=== PATIENT | male | born 1940 | race Caucasian/White ===

== ENCOUNTER 2019-07-06 20:01 | Emergency (ER) | payer MEDICARE, OTHER ==
[~2019-07-06] VITALS: Ht 185.4 cm; Wt 102.1 kg
--- OUTSIDE RECORDS SUMMARY | 2019-07-06 20:05 | XMS REPORT ---
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 Allergies, Adverse Reactions, Alerts Allergy Name Allergy Type Status Severity Reaction(s) Onset Date Inactive Date Treating Clinician Comments No Known Allergies DA Active U 2018-06-10 00:00:00 Medications This patient has no known medications.
[2019-07-06] MEDS ORDERED: SODIUM CHLORIDE 0.9% 1000ML 1,000 ML IV STA (20:32)
[2019-07-06] MEDS ORDERED: ONDANSETRON HCL INJ 2MG/ML 2ML 2 MG/ML VIAL IV STA (20:32)
[2019-07-06 20:41] LABS: BASOPHILS % 0.2 % (0.0-1.0); EOSINOPHILS % 0.3 % (0.0-6.0); HEMOGLOBIN 12.8 g/dL (14.0-18.0); LYMPHOCYTES # (AUTO) 0.8 (1.0-3.2); LYMPHOCYTES % 6.8 % (18.0-39.1); MEAN CORPUSCULAR HEMOGLOBIN 32.1 pg (28-32); MEAN CORPUSCULAR HGB CONC 33.7 g/dL (31-35); MEAN CORPUSCULAR VOLUME 95.2 fL (81-99); MONOCYTES # (AUTO) 0.3 (0.2-0.8); MONOCYTES % 2.4 % (4.4-11.3); NEUTROPHILS # (AUTO) 11.1 (2.1-6.9); NEUTROPHILS % 89.9 % (38.7-80.0); PLATELET COUNT 211 x10e3/uL (140-360); RED BLOOD COUNT 3.99 x10e6/uL (4.3-5.7); RED CELL DISTRIBUTION WIDTH 14.6 % (11.7-14.4)
[2019-07-06 21:33] LABS: ALBUMIN 3.9 g/dL (3.5-5.0); CALCIUM 9.3 mg/dL (8.4-10.2); CREATININE, SERUM 2.64 mg/dL (0.72-1.25)
[2019-07-06 21:47] LABS: BILIRUBIN,URINE NEGATIVE (NEGATIVE); CLARITY,URINE SL CLOUDY (CLEAR); COLOR,URINE YELLOW (YELLOW); KETONES,URINE NEGATIVE (NEGATIVE); LEUKOCYTE ESTERASE ,URINE NEGATIVE (NEGATIVE); NITRITE,URINE NEGATIVE (NEGATIVE); PROTEIN,URINE DIPSTICK NEGATIVE (NEGATIVE); URINE UROBILINOGEN 0.2 mg/dL (0.2 - 1)
--- NOTE | 2019-07-06 22:01 | Diagnostic Imaging Report ---
EXAMINATION: CHEST SINGLE (PORTABLE) INDICATION: Chest pain. COMPARISON: None FINDINGS: TUBES and LINES: None. LUNGS: Low lung volumes. Central vascular congestion without pulmonary edema. Mild patchy bibasilar opacities, likely atelectasis. PLEURA: No pleural effusion or pneumothorax. HEART AND MEDIASTINUM: The cardiomediastinal silhouette is unremarkable. BONES AND SOFT TISSUES: No acute osseous abnormality. UPPER ABDOMEN: No free air under the diaphragm. IMPRESSION: No acute radiographic abnormality. Signed by: Dr. Juana Coleman MD on 07/06/2019 9:57 PM
[2019-07-06 22:06] LABS: BACTERIA,URINE FEW /HPF; RBC,URINE 0-5 /HPF (0-5); WBC,URINE (MAN) 0-5 /HPF (0-5)
[2019-07-06 22:07] LABS: EPITHELIAL CELLS,URINE RARE /LPF
[2019-07-07 00:54] VITALS: BP 125/60
[2019-07-07] MEDS ORDERED: FUROSEMIDE INJ 10 MG/ML 4 ML VIAL IV SCH (09:00)
== END 2019-07-07 01:14 | disposition home or self-care (01) ==
LOC: ER 20:01
DX: R11.2 Nausea with vomiting, unspecified (principal); K52.9 Noninfective gastroenteritis and colitis, unspecified
CPT/HCPCS: 36415; 71045; 80053; 81001; 83690; 83880; 85025; 99284; J2405; J7030

== ENCOUNTER 2020-02-03 07:06 | Inpatient (IN) | payer MEDICARE, OTHER ==
[~2020-02-03] VITALS: Ht 182.9 cm; Wt 102.1 kg
[2020-02-03] MEDS ORDERED: SODIUM CHLORIDE 0.9% 1000ML 1,000 ML IV STA (07:25)
[2020-02-03] MEDS ORDERED: PIPERACILLIN/TAZO 4.5 GM 100 ML IV STA (07:25)
--- NOTE | 2020-02-03 07:29 | Emergency Department Note ---
History of Present Illnes History of Present Illness Chief Complaint: COVID PUI History of Present Illness This is a 79 year old male 4 day h/o of weakness with acute lethargy. Patient brought by EMS, unable to provide meaningful history. Patient covered in body feces . 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 Any updates have been documented here. Past Medical History Past Medical History: Hypertension, Hypothyroidism, Chronic Kidney Disease Other Medical History: TESTOSTERONE BPH Past Surgical History: Appendectomy Other Surgery: LUMPECTOMY Other Last Tetanus: UNK Review of Systems ROS Narrative Unable to obtain ROS: altered mental status, critical patient Physical Exam Related Data Allergies: Coded Allergies: No Known Allergies (Unverified , 07/06/19) Physical Exam CONSTITUTIONAL HENT EYES NECK PULMONARY CARDIOVASCULAR GASTROINTESTINAL GENITOURINARY SKIN MUSCULOSKELETAL NEUROLOGICAL PSYCHOLOGICAL Results Laboratory Lab results reviewed: Yes Laboratory comments Laboratory Tests Test 02/03/20 15:20 02/03/20 10:39 Lactic Acid Level 0.7 mmol/L (0.5-2.0) Creatine Kinase 147 IU/L (30-200) Creatine Kinase MB 6.20 ng/mL (0-5.0) Troponin I 0.007 ng/mL (0-0.300) Imaging Imaging results reviewed: Yes Impressions [place] [address] Patient Name: VIRAL BAUTISTA MR #: [id number] : 1940 Age/Sex: 79/M Req #: [id number] Adm Physician: Ordered by: BLAKE WHITFIELD DO Report #: [id number] Location: ER Room/Bed: Procedure: [id number] CT/CT BRAIN WO Exam Date: 02/03/20 Exam Time: 0810 REPORT STATUS: Signed CT BRAIN WO HISTORY: Altered mental status COMPARISON: None. Technique: Noncontrast axial scans were obtained from skull base to the vertex. Coronal and sagittal reconstructions obtained from the axial data. One or more of the following dose reduction techniques were used: Automated exposure control, adjustment of the mA and/or kV according to patient size, and/or utilization of iterative reconstruction technique. Beam hardening artifacts obscure some details. DISCUSSION: Scalp/Skull: Unremarkable. Brain sulci: Mildly prominent. Ventricles: Compensatory dilatation. Extra-axial spaces: No masses or fluid collections. Carotid siphon and vertebral artery calcifications are present. Parenchyma: Mild to moderate bilateral deep white matter hypodensity is likely chronic microvascular ischemic change. Otherwise, no masses, hemorrhage, or large vascular territory acute infarct. Dural sinuses: No abnormal densities. Sellar/Suprasellar region: Intact. Skull base: Intact. Incidental findings: Mild scattered paranasal sinus mucosal thickening. Bilateral ocular lens replacement. IMPRESSION: 1. No acute intracranial abnormalities. 2. Mild to moderate supratentorial chronic microvascular ischemic change. Mild generalized cerebral volume loss. Signed by: Dr. Jose Espino M.D. on 02/03/2020 8:44 AM Dictated By: JOSE ESPINO MD 3 Transcribed By: DEANNA on 02/03/20843 COPY TO: BLAKE WHITFIELD DO~ [place] [address] Patient Name: VIRAL BAUTISTA MR #: [id number] : 1940 Age/Sex: 79/M Req #: [id number] Adm Physician: Ordered by: BLAKE WHITFIELD DO Report #: [id number] Location: ER Room/Bed: Procedure: [id number] DX/CHEST SINGLE (PORTABLE) Exam Date: 02/03/20 Exam Time: 0815 REPORT STATUS: Signed EXAM: CHEST SINGLE (PORTABLE) DATE: 02/03/2020 8:15 AM INDICATION: Altered mental status, diarrhea COMPARISON: 07/06/2019 FINDINGS: The trachea is midline. Lung volumes are low. The lungs are otherwise symmetrically expanded without evidence for large focal consolidation, pneumothorax, or significant pleural effusion. The cardiomediastinal silhouette and pulmonary vasculature are within normal limits. No acute osseous abnormalities identified. IMPRESSION: No acute cardiopulmonary process identified. Signed by: Dr. Mike Hernandez MD on 02/03/2020 9:03 AM Dictated By: MIKE HERNANDEZ MD 2 Transcribed By: DEANNA on 02/03/20902 COPY TO: BLAKE WHITFIELD DO~ Procedures 12 Lead ECG Interpretation ECG Interpretation : ECG: ECG 1 Corporate Officer: Interpreted by ED physician Date: Feb 03, 2020 Time: 07:32 Prior ECG tracings: reviewed Rhythm: sinus rhythm Ectopy: frequent PVC's Rate: normal BPM: 83 QRS axis: normal ST segments normal: Yes T waves normal: Yes Other findings: LVH Additional Comments trigeminy Critical Care Time Critcal care necessary due to: cardiac failure Critcal care time spent by me: evaluation patient response to tx, examination of patient, order/review laboratory studies, order/review radiographic studies, re-evaluation of patient condition Assessment & Plan Medical Decision Making MDM 79 yom presents to the ED for non-specific weakness with patient unable to provide meaningful history. Diff Dx includes but not limited to CVA, SAH, Intracranial pathology, ACS, Sepsis, Pneumonia, UTI, COVID-[address] scan , CXR, CBC, CMP, lab work ordered. Plan to admit to the hospital Assessment & Plan Final Impression: (1) Bigeminy (2) Renal insufficiency (3) Weakness Depart Disposition: ADMITTED Home Meds Reported Medications Levocetirizine Dihydrochloride (XYZAL) 5 Mg Tablet, 5 MG PO DAILY THERAPEUTICALLY SUBSTITUTED WITH LORATADINE 02/03/20 Levothyroxine Sodium (LEVOTHYROXINE SODIUM) 112 Mcg Tablet, 112 MCG PO QAM, #30 TAB 02/03/20 Saccharomyces Boulardii (Probiotic) 250 Mg Capsule, PO HS 02/03/20 Simethicone (SIMETHICONE) 80 Mg Chew, 125 MG PO HS, #30 TAB 02/03/20 [place]-3/Dha/Epa/Fish Oil (Fish Oil 1,200 mg Softgel) 1 Each Capsule.dr, 1200 MG PO HS 02/03/20 Docusate Sodium (DOCUSATE SODIUM) 100 Mg Tablet, 100 MG PO HS 02/03/20 Amlodipine Besylate (AMLODIPINE BESYLATE) 5 Mg Tablet, 5 MG PO HS, #30 TAB 02/03/20 Lactobac Cmb #3/Fos/Pantethine (PROBIOTIC & ACIDOPHILUS CAP) 1 Each Capsule, 1 CAP PO HS 02/03/20 Simethicone (SIMETHICONE) 80 Mg Chew, 125 MG PO QAM, TAB 02/03/20 Ferrous Sulfate (FERROUS SULFATE) 15 Mg/1 Ml Drops, 65 MG PO HS 02/03/20 Fish Oil/Dha/Epa (FISH OIL 1,200 MG FISH OIL) 1 Each Capsule, PO DAILY 02/03/20 Urine Leukocyte Test (AZO) 1 Each Strip, PO BID 02/03/20 Acetaminophen (ACETAMINOPHEN) 325 Mg/10 Ml Elix, 650 MG PO BID PRN for PRN, ML 02/03/20 Tamsulosin Hcl* (FLOMAX*) 0.4 Mg Cap, 0.4 MG PO HS, #30 CAP 02/03/20 Prednisone (PREDNISONE) 5 Mg Tablet, 5 MG PO DAILY PRN for PRN, #30 TAB 02/03/20 Potassium Chloride (POTASSIUM CHLORIDE) 20 Meq Tab.er.prt, 20 MG PO DAILY 02/03/20 Omeprazole (OMEPRAZOLE) 40 Mg Capsule.dr, 40 MG PO DAILY 02/03/20 Metoprolol Succinate (METOPROLOL SUCCINATE) 50 Mg Tab.er.24h, 50 MG PO DAILY, MG 02/03/20 Gabapentin (GABAPENTIN) 300 Mg Capsule, 1 CAP PO BID, #60 CAP 02/03/20 Furosemide (FUROSEMIDE) 40 Mg Tablet, 60 MG PO BID, #30 TAB 02/03/20 Finasteride (FINASTERIDE) 5 Mg Tablet, 5 MG PO HS, #30 TAB 02/03/20 Dicyclomine Hcl (DICYCLOMINE HCL) 10 Mg Capsule, 20 MG PO HS 02/03/20 Dicyclomine Hcl (DICYCLOMINE HCL) 20 Mg Tablet, 20 MG PO QAM, TAB 02/03/20 [Vitamin D] No Conflict Check, 0.25 MCG PO HS 02/03/20 Allopurinol (ALLOPURINOL) 100 Mg Tablet, 200 MG PO DAILY, #30 TAB 02/03/20 Medications in the ED Sodium Chloride 1,000 ml @ 0 mls/hr Q0M STAT IV Last administered on 02/03/20at 08:14; Admin Dose 1,000 MLS/HR; Start 02/03/20 at 07:25; Stop 02/03/20 at 07:28; Status DC Piperacillin Sod/ Tazobactam Sod 100 ml @ 100 mls/hr ONCE STAT IV Last administered on 02/03/20at 08:14; Admin Dose 100 MLS/HR; Start 02/03/20 at 07:25; Stop 02/03/20 at 08:24; Status DC BLAKE WHITFIELD DO Feb 03, 2020 07:29
[2020-02-03 07:49] LABS: BASOPHILS % 0.2 % (0.0-1.0); EOSINOPHILS % 0.3 % (0.0-6.0); HEMATOCRIT 38.4 % (38.2-49.6); HEMOGLOBIN 12.7 g/dL (14.0-18.0); LYMPHOCYTES # (AUTO) 1.2 (1.0-3.2); LYMPHOCYTES % 13.8 % (18.0-39.1); MEAN CORPUSCULAR HEMOGLOBIN 31.2 pg (28-32); MEAN CORPUSCULAR HGB CONC 33.1 g/dL (31-35); MEAN CORPUSCULAR VOLUME 94.3 fL (81-99); MONOCYTES # (AUTO) 0.7 (0.2-0.8); MONOCYTES % 7.3 % (4.4-11.3); NEUTROPHILS % 78.2 % (38.7-80.0); PLATELET COUNT 176 x10e3/uL (140-360); RED BLOOD COUNT 4.07 x10e6/uL (4.3-5.7); RED CELL DISTRIBUTION WIDTH 14.5 % (11.7-14.4)
[2020-02-03 08:12] LABS: ALBUMIN 4.1 g/dL (3.5-5.0); ALBUMIN/GLOBULIN RATIO 0.9 (0.8-2.0); ANION GAP 16.1 mmol/L (8-16); CREATININE, SERUM 2.61 mg/dL (0.72-1.25); POTASSIUM 4.1 mmol/L (3.5-5.1)
[2020-02-03 08:21] LABS: B-TYPE NATRIURETIC PEPTIDE2 68.6 pg/mL (0-100)
--- NOTE | 2020-02-03 08:47 | Diagnostic Imaging Report ---
CT BRAIN WO HISTORY: Altered mental status COMPARISON: None. Technique: Noncontrast axial scans were obtained from skull base to the vertex. Coronal and sagittal reconstructions obtained from the axial data. One or more of the following dose reduction techniques were used: Automated exposure control, adjustment of the mA and/or kV according to patient size, and/or utilization of iterative reconstruction technique. Beam hardening artifacts obscure some details. DISCUSSION: Scalp/Skull: Unremarkable. Brain sulci: Mildly prominent. Ventricles: Compensatory dilatation. Extra-axial spaces: No masses or fluid collections. Carotid siphon and vertebral artery calcifications are present. Parenchyma: Mild to moderate bilateral deep white matter hypodensity is likely chronic microvascular ischemic change. Otherwise, no masses, hemorrhage, or large vascular territory acute infarct. Dural sinuses: No abnormal densities. Sellar/Suprasellar region: Intact. Skull base: Intact. Incidental findings: Mild scattered paranasal sinus mucosal thickening. Bilateral ocular lens replacement. IMPRESSION: 1. No acute intracranial abnormalities. 2. Mild to moderate supratentorial chronic microvascular ischemic change. Mild generalized cerebral volume loss. Signed by: Dr. Jose Espino M.D. on 02/03/2020 8:44 AM
--- NOTE | 2020-02-03 09:06 | Diagnostic Imaging Report ---
EXAM: CHEST SINGLE (PORTABLE) DATE: 02/03/2020 8:15 AM INDICATION: Altered mental status, diarrhea COMPARISON: 07/06/2019 FINDINGS: The trachea is midline. Lung volumes are low. The lungs are otherwise symmetrically expanded without evidence for large focal consolidation, pneumothorax, or significant pleural effusion. The cardiomediastinal silhouette and pulmonary vasculature are within normal limits. No acute osseous abnormalities identified. IMPRESSION: No acute cardiopulmonary process identified. Signed by: Dr. Mike Hernandez MD on 02/03/2020 9:03 AM
[2020-02-03 11:11] LABS: BILIRUBIN,URINE NEGATIVE (NEGATIVE); CLARITY,URINE CLEAR (CLEAR); COLOR,URINE YELLOW (YELLOW); KETONES,URINE NEGATIVE (NEGATIVE); LEUKOCYTE ESTERASE ,URINE NEGATIVE (NEGATIVE); NITRITE,URINE NEGATIVE (NEGATIVE); PROTEIN,URINE DIPSTICK 2+ (NEGATIVE); URINE UROBILINOGEN 0.2 mg/dL (0.2 - 1)
[2020-02-03] MEDS ORDERED: ASPIRIN 81 MG CHEW TAB PO ONE (11:15)
[2020-02-03 11:30] LABS: WBC,URINE (MAN) 0-5 /HPF (0-5)
[2020-02-03 11:31] LABS: AMORPHOUS SEDIMENT,URINE FEW (FEW); BACTERIA,URINE RARE /HPF; EPITHELIAL CELLS,URINE RARE /LPF; RBC,URINE 0-5 /HPF (0-5)
[2020-02-03 12:47] VITALS: BP 150/69
[2020-02-03 12:48] VITALS: BP 150/69
--- NOTE | 2020-02-03 12:51 | NUR ---
PATIENT ARRIVED ON THE UNIT AT 1234 PER STRETCHER FROM THE ER. BEDSIDE REPORT GIVEN BY ER NURSE. PATIENT IS NON-VERBAL AND IS IN STABLE CONDITION WITH NO S/S OF RESPIRATORY DISTRESS. NO PAIN INDICATED. 02 APPLIED AT 2L NC. POOLE INTACT AND DRAINING; URINE IS YELLOW AND CLEAR. DIAPER APPLIED. TELEMETRY APPLIED- SB@55. BILATERAL BRUISING NOTED TO UPPER EXTREMITIES. AIR PUMP APPLIED TO MATTRESS; BED ALARM APPLIED. CALL LIGHT IS WITHIN REACH, PATIENT INSTRUCTED TO CALL FOR ASSISTANCE NEEDED.
[2020-02-03 12:55] VITALS: BP 150/69
--- NOTE | 2020-02-03 13:03 | NUR ---
RN CALLED TO SPEAK WITH THE PATIENT'S SON- SON WAS NOT ABLE TO PROVIDE INFORMATION ON THE PATIENT AND ASKED RN TO USE THE INFORMATION FROM HIS LAST HOSPITAL VISIT. RN CALLED TO SPEAK WITH THE PATIENT'S - SHE WAS ABLE TO PROVIDE LIMITED INFO AND WILL TRY TO PROVIDE THE PATIENT'S HOME MEDICATIONS.
[2020-02-03] MEDS ORDERED: METOPROLOL SUCC50 MG PO (14:44)
[2020-02-03] MEDS ORDERED: VITAMIN D PO (14:44)
[2020-02-03] MEDS ORDERED: FUROSEMIDE40 MG PO (14:44)
[2020-02-03] MEDS ORDERED: AZO1 EACH PO (14:44)
[2020-02-03] MEDS ORDERED: POTASSIUM CHLO20 ME1 PO (14:44)
[2020-02-03] MEDS ORDERED: ALLOPURINOL100 MG PO (14:44)
[2020-02-03] MEDS ORDERED: GABAPENTIN300 MG PO (14:44)
[2020-02-03] MEDS ORDERED: DICYCLOMINE HCL20 MG PO (14:44)
[2020-02-03] MEDS ORDERED: DICYCLOMINE HCL10 MG PO (14:44)
[2020-02-03] MEDS ORDERED: OMEPRAZOLE40 MG PO (14:44)
[2020-02-03] MEDS ORDERED: FERROUS SU15 MG/1 ML PO (14:44)
[2020-02-03] MEDS ORDERED: PREDNISONE5 MG PO (14:44)
[2020-02-03] MEDS ORDERED: FINASTERIDE5 MG PO (14:44)
[2020-02-03] MEDS ORDERED: FISH OIL 1,2001 EACH PO (14:44)
[2020-02-03] MEDS ORDERED: ACETAMINOP325 MG/10 PO (14:44)
[2020-02-03] MEDS ORDERED: FLOMAX0.4 MG PO (14:44)
[2020-02-03] MEDS ORDERED: PROBIOTIC & AC1 EACH PO (14:46)
[2020-02-03] MEDS ORDERED: SIMETHICONE80 MG PO ×2 (14:46→19:17)
[2020-02-03 15:19] VITALS: BP 135/89
[2020-02-03 15:59] LABS: CREATINE KINASE MB 6.2 ng/mL (0-5.0)
--- NOTE | 2020-02-03 16:57 | NUR ---
CONSULT CALLED TO DR. HUBER- SPOKE WITH RAFA FROM ANSWERING SERVICE.
[2020-02-03] MEDS ORDERED: ACETAMINOPHEN 325 MG/10 ML UDC PO PRN (17:45)
[2020-02-03] MEDS ORDERED: PREDNISONE 5 MG TAB PO PRN (17:45)
--- NOTE | 2020-02-03 19:10 | NUR ---
Acknowledged assignment of patient. However, at this time patient has been noted to be COVID19+ve and there is a transfer order for the patient to go to the COVID unit. Day nurse Arabella accepted and called report to Pooja MCMILLAN at COVID unit.Signing off care at this time.
[2020-02-03] MEDS ORDERED: XYZAL5 MG PO (19:17)
[2020-02-03] MEDS ORDERED: FISH OIL 1,2001 EAC6 PO (19:17)
[2020-02-03] MEDS ORDERED: LEVOTHYROXINE112 MCG PO (19:17)
[2020-02-03] MEDS ORDERED: PROBIOTIC250 MG PO (19:17)
[2020-02-03] MEDS ORDERED: AMLODIPINE BESYL5 MG PO (19:17)
[2020-02-03] MEDS ORDERED: DOCUSATE SODIU100 M1 PO (19:17)
--- NOTE | 2020-02-03 19:30 | NUR ---
TRANSFER REPORT CALLED TO RN; DR. JONES CONSULT CALLED. - PATIENT IS TRANSFERRING TO ROOM 186 PER POLYETHYLENE COMBINER STAFF.
--- NOTE | 2020-02-03 19:54 | NUR ---
Patient arrived to unit via bed. Patient awake and sitting up in bed, vital signs stable, currently on RA, no s/s of distress at this time. Orourke catheter patent and draining to gravity. Bed locked and in lowest position, side rails upx3, call light placed within reach. Patient instructed to call for assistance if needed, all safety measures in place. Will continue to monitor.
[2020-02-03 20:00] VITALS: BP 140/80
[2020-02-03] MEDS ORDERED: CEFTRIAXONE SOD 1 GM/NS 50 ML 50 ML IV SCH (20:00)
[2020-02-03] MEDS ORDERED: SODIUM CHLORIDE 0.9% 250ML 250 ML ONE (20:12)
[2020-02-03] MEDS: FERROUS SULFATE 65 MG PO SCH (20:53)
[2020-02-03] MEDS: AZITHROMYCIN 500MG/NS 250 ML 250 ML IV SCH (20:53)
[2020-02-03] MEDS: DOCUSATE SODIUM 100 MG CAP PO SCH (20:53)
[2020-02-03] MEDS: DICYCLOMINE HCL 10 MG CAP PO SCH (20:53)
[2020-02-03] MEDS: AMLODIPINE BESYLATE 5 MG TAB PO SCH (20:54)
[2020-02-03] MEDS: FINASTERIDE 5 MG TAB PO SCH (20:54)
--- NOTE | 2020-02-03 20:56 | NUR ---
Spoke to Dr. Hurtado regarding new routine consult. Per MD he is on his way to see patient.
[2020-02-03] MEDS ORDERED: LACTOBACILLUS ACIDOPHILUS CAPSULE PO SCH (21:00)
[2020-02-03] MEDS ORDERED: DICYCLOMINE HCL 10 MG CAP PO SCH (21:00)
--- NOTE | 2020-02-03 21:09 | NUR ---
Dr. Hurtado here to see patient. No new orders received at this time.
[2020-02-03] MEDS: LACTOBACILLUS ACIDOPHILUS CAPSULE PO SCH (21:15)
[2020-02-03 21:17] VITALS: BP 140/80
[2020-02-04] VITALS (8 sets, daily range): BP systolic 128–171; BP diastolic 58–93
--- NOTE | 2020-02-04 02:11 | Consultation ---
DATE OF CONSULTATION: Pulmonary Critical Care Consultation CHIEF COMPLAINT: Malaise and fatigue. HISTORY OF PRESENT ILLNESS: The patient is a 79-year-old man with a history of Clostridium difficile colitis. He just completed several months of vancomycin 2 weeks ago. He also has a history of renal insufficiency and benign prostatic hypertrophy. He has noted increasing fatigue and malaise over the past several days. He has also had a cough for about a week. He denies fevers. He is not having chest pain. He is not having dyspnea. He presented to the emergency department and had the chest x-ray had showed no acute disease. His COVID test is pending. PAST SURGICAL HISTORY: Status post appendectomy. PAST MEDICAL HISTORY: 1. Chronic renal failure, stage 3-4. 2. Hypertension. 3. Benign prostatic hypertrophy. 4. Hypothyroidism. ALLERGIES: NO KNOWN DRUG ALLERGIES. SOCIAL HISTORY: The patient is not a smoker or drinker. FAMILY HISTORY: Noncontributory. REVIEW OF SYSTEMS: The patient denies any fever. He is not having headache. He does note some increased malaise. He has no chest pain. He is not having any dyspnea. He has some mild cough. He has no abdominal pain. He is not having diarrhea at this time. PHYSICAL EXAMINATION: VITAL SIGNS: Blood pressure is 135/89, saturation is 99% on 2 L, pulse is 61, and respiratory rate is 16. HEENT: Shows no facial swelling or erythema. CARDIAC: Reveals regular rate and rhythm with normal S1 and S2. LUNGS: Auscultation of lungs reveals rhonchorous breath sounds bilaterally. There is no wheezing. ABDOMEN: Soft and nontender. There is no rebound or guarding. EXTREMITIES: There is no leg edema. NEUROLOGIC: The patient is has no focal neurological abnormalities. LABORATORY DATA: BUN to creatinine ratio is 35 and 2.61. His carbon dioxide is 20. Albumin is 4.1. White blood cell count is 9, hemoglobin is 12.7, and platelet count is 176. RADIOGRAPHIC DATA: Chest x-ray shows no active disease. CT scan of the brain shows no acute abnormalities. IMPRESSION: 1. Chronic renal failure stage 4. 2. Recurrent Clostridium difficile colitis. 3. Metabolic acidosis related to renal failure. 4. Hypertension. 5. Evaluation for coronavirus disease 2019. PLAN: 1. Avoid excessive antibiotics, which could lead to recurrent Clostridium difficile colitis. 2. Await COVID-19 results. 3. Judicious use of IV fluids. 4. Echocardiogram. MD DEJUAN Wang/NATHANIEL /[id number]
[2020-02-04 06:00] LABS: EOSINOPHILS # (AUTO) 0.1 (0.0-0.4); EOSINOPHILS % 1.5 % (0.0-6.0); HEMATOCRIT 36.6 % (38.2-49.6); HEMOGLOBIN 11.9 g/dL (14.0-18.0); LYMPHOCYTES # (AUTO) 1.2 (1.0-3.2); LYMPHOCYTES % 20.7 % (18.0-39.1); MEAN CORPUSCULAR HEMOGLOBIN 30.4 pg (28-32); MEAN CORPUSCULAR HGB CONC 32.5 g/dL (31-35); MEAN CORPUSCULAR VOLUME 93.6 fL (81-99); MONOCYTES # (AUTO) 0.6 (0.2-0.8); MONOCYTES % 10.9 % (4.4-11.3); NEUTROPHILS # (AUTO) 3.9 (2.1-6.9); NEUTROPHILS % 66.7 % (38.7-80.0); PLATELET COUNT 157 x10e3/uL (140-360); RED BLOOD COUNT 3.91 x10e6/uL (4.3-5.7); RED CELL DISTRIBUTION WIDTH 14.2 % (11.7-14.4)
[2020-02-04 06:08] LABS: CREATINE KINASE MB 4.3 ng/mL (0-5.0)
[2020-02-04] MEDS: LEVOTHYROXINE SODIUM 112 MCG TAB PO SCH (06:30)
[2020-02-04 06:39] LABS: ALBUMIN 3.3 g/dL (3.5-5.0); ALBUMIN/GLOBULIN RATIO 0.9 (0.8-2.0); ANION GAP 14.7 mmol/L (8-16); CALCIUM 8.8 mg/dL (8.4-10.2); CREATININE, SERUM 1.83 mg/dL (0.72-1.25); POTASSIUM 3.7 mmol/L (3.5-5.1)
[2020-02-04] MEDS ORDERED: METOPROLOL SUCCINATE 50 MG TAB XL PO SCH (09:00)
[2020-02-04] MEDS ORDERED: PANTOPRAZOLE SOD 40 MG TABEC PO SCH (09:00)
--- NOTE | 2020-02-04 09:08 | Progress Note ---
DATE: SUBJECTIVE: The patient is not having any diarrhea. He actually complains of constipation. He denies dyspnea or cough. OBJECTIVE: VITAL SIGNS: The blood pressure is 128/75, saturation is 95%. The pulse is 81. HEENT: Shows no facial swelling or erythema. CARDIAC: Reveals a regular rate and rhythm with normal S1 and S2. LUNGS: Auscultation of lungs reveals rhonchus breath sounds bilaterally. There is no wheezing. ABDOMEN: Soft, nontender. There is no rebound or guarding. EXTREMITIES: Shows no leg edema or calf tenderness. There is no cyanosis or clubbing. SKIN: Shows no rashes. NEUROLOGICAL: Shows no focal abnormalities. LABORATORY DATA: BUN to creatinine ratio is 27 to 1.83 and carbon dioxide is 21. The albumin is 3.3. The white blood cell count is 5.85 and hemoglobin is 11.9. The platelet count is 157. RADIOGRAPHIC DATA: Chest x-ray shows no active disease. ASSESSMENT: 1. Coronavirus disease - 19 and viral pneumonia with minimal symptoms. 2. Recurrent Clostridium difficile colitis. 3. Chronic renal failure stage 3. 4. Hypertension. PLAN: 1. Discussed with Dr. Coyne and Dr. More. Dr. Coyne will evaluate the patient later today with possible discharge. 2. Avoid excessive antibiotics because of prior history of C. difficile. 3. Continue current antihypertensive regimen. Liam Hurtado MD [facility]/ALEXL /[id number]
[2020-02-04] MEDS: DICYCLOMINE HCL 20 MG TAB PO SCH (09:30)
[2020-02-04] MEDS: SIMETHICONE 80 MG CHEW PO SCH (09:30)
[2020-02-04] MEDS: ALLOPURINOL 100 MG TAB PO SCH (09:30)
[2020-02-04] MEDS: METOPROLOL SUCCINATE 50 MG TAB XL PO SCH (09:30)
[2020-02-04] MEDS: LACTOBACILLUS ACIDOPHILUS CAPSULE PO SCH ×2 (09:30→18:00)
[2020-02-04] MEDS: POTASSIUM CHLORIDE 20 MEQ TAB CR PO SCH (09:30)
[2020-02-04] MEDS: SODIUM CHLORIDE 0.9% 1000ML 1,000 ML IV SCH ×2 (09:30→19:47)
--- NOTE | 2020-02-04 12:12 | NUR ---
WOUND CARE CONSULT FOR 79 YO MALE HX OF weakness , trigemity MARY 16 ON CONSERVATIVE PUP STATUS AND INTERVENTIONS AND VISCO MATTRESS LABS: WBC-5.85 HGB_11.9 GLUCOSE-91 SKIN ASSESSMENT COMPLETE PATIENT PRESENTS WITH SACRAL STAGE 2 ULCERATION 2CM X0.5CM X0.1CM RECOMMENDATIONS: NURSING TO CONTINUE TO MAINTAIN CONSERVATIVE PUP STATUS AND INTERVENTIONS AND VISCO MATTRESS NURSING TO CONTINUE TO ASSIST PATIENT OUT OF BED FOR MEALS AND MUCH TOLERATED NURSING TO CONTINUE TO ASSIST PATIENT NEEDED WITH MEALS AND NUTRITIONAL SUPPLEMENTS TO ENSURE PROPER REQUIREMENTS FOR HEALING NURSING TO CONTINUE TO OFFLOAD FEET AND HEELS NEEDED WITH PILLOW SUSPENSION WHEN IN BED NURSING TO CLEAN SACRAL STAGE 2 ULCER WITH NORMAL SALINE DAILY AND APPLY VENELEX OINTMENT AND ALLEVYN FOAM DRESSING Addendum: 02/04/20 at 1215 by Samy Mendoza RN Amended: Links added.
--- NOTE | 2020-02-04 13:31 | NUR ---
infectious disease consultation reason for consultation covid 19 History of C. difficile colitis Chief complaint Malaise and fatigue. HISTORY OF PRESENT ILLNESS: The patient Who is very well known to me here history of recurrent C. difficile colitis he also history of dementia the patient has been sick for a week according to him not feeling well feverish he came here because he was diagnosed with cope with 19 the patient is currently ly ing in bed comfortably but he is quite well there is no shortness of breath no oxygen demand. When I was examining him he had a little bit of fever 100.6 but she denies any complaints. He had no diarrhea no nausea no vomiting no pain. She is weak. is a 79-year-old man with a history of Clostridium difficile colitis. He just completed several months of vancomycin 2 weeks ago. He also has a history of renal insufficiency and benign prostatic hypertrophy. the patient has had multiple admissions to the hospital I know him from an outside clinic practice He has noted increasing fatigue and malaise over the past several days. He has also had a cough for about a week. He denies fevers. He is not having chest pain. He is not having dyspnea. He presented to the emergency department and had the chest x-ray had showed no acute disease. His COVID test is pending. PAST SURGICAL HISTORY: Status post appendectomy. PAST MEDICAL HISTORY: 1. Chronic renal failure, stage 3-4. 2. Hypertension. 3. Benign prostatic hypertrophy. 4. Hypothyroidism. ALLERGIES: NO KNOWN DRUG ALLERGIES. SOCIAL HISTORY: The patient is not a smoker or drinker. FAMILY HISTORY: Noncontributory. REVIEW OF SYSTEMS: The patient denies any fever. He is not having headache. He does note some increased malaise. He has no chest pain. He is not having any dyspnea. He has some mild cough. He has no abdominal pain. He is not having diarrhea at this time. he had no fever but he did not feel it 14 points are negative PHYSICAL EXAMINATION: VITAL SIGNS: Blood pressure is 135/89, saturation is 99% on 2 L, pulse is 61, and respiratory rate is 16. HEENT: Shows no facial swelling or erythema. CARDIAC: Reveals regular rate and rhythm with normal S1 and S2. LUNGS: Auscultation of lungs reveals rhonchorous breath sounds bilaterally. There is no wheezing. ABDOMEN: Soft and nontender. There is no rebound or guarding. EXTREMITIES: There is no leg edema. NEUROLOGIC: The patient is has no focal neurological abnormalities. LABORATORY DATA: BUN to creatinine ratio is 35 and 2.61. His carbon dioxide is 20. Albumin is 4.1. White blood cell count is 9, hemoglobin is 12.7, and platelet count is 176. RADIOGRAPHIC DATA: Chest x-ray shows no active disease. CT scan of the brain shows no acute abnormalities. IMPRESSION: covid 19 on admission patient with little symptoms there is no need for treatment 1. Chronic renal failure stage 4. 2. Recurrent Clostridium difficile colitis.he has no diarrhea there is no need for treatment 3. Metabolic acidosis related to renal failure. 4. Hypertension. 5. Evaluation for coronavirus disease 2019. PLAN: supportive CARE there is no need for treatment only for antibiotic no need for dexamethasone and just supportive care vitamin C and zinc patient could be discharged home I am going to observe him for a couple more hours if he is doing well he can be discharged home with no treatment To continue droplet isolation home quarantine for 2 weeks
--- NOTE | 2020-02-04 13:37 | NUR ---
SPOKE WITH SON VIRAL WHOM STATED HE HAS BEEN TRYING TO GET AHOLD OF DOCTOR TO DISCUSS HISTORY. BEGAN YELLING AT ME. I LET HIM KNOW THAT I WAS CALLING ABOUT THE SNF ORDER THE DOCTOR ORDERED, HE STATES HE WILL NOT AGREE TO ANYTHING UNTIL HE SPEAKS WITH THE DOCTOR. NOTIFIED TELEMETRY RN WHOM WILL CALL HIM.
--- NOTE | 2020-02-04 15:44 | NUR ---
Nutrition Intervention Note RD Recommendation(s) for Physician: -Continue current diet as ordered -Recommend Gordo BID as well as zinc and vitamin C to promote wound healing Plan of Care: RD following, monitoring for tolerance and adequacy, oral supplement recommendation Nutrition reason for involvement: pressure ulcer RD Assessment (02/04/20) Pt is a 79 year old male admitted with trigeminy and weakness. Pt is COVID+. Unable to enter room due to droplet isolation precautions. Attempted to call pt over the phone, but he did not answer. Per documentation, pt consumed 100% of his breakfast this morning. There are no previous weights in chart. It is noted that pt has a stage 2 sacral pressure ulcer. Recommend Gordo BID as well as zinc and vitamin C to promote wound healing. 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 GI: soft, non-tender abdomen, liquid stools Skin: stage 2 sacral pressure ulcer Labs: (02/04/20) Na 141, K 3.7, BUN 27, Cr 1.83, Glu 91, Ca 8.8 Meds: probiotic, NaCl, KCl, levothyroxine, colace, antibiotic, lovenox, prednisone Ht: 72 inches Wt: 225 lbs BMI: 30.5 kg/m2 IBW: 178 lbs Malnutrition Evaluation (02/04/20) Unable to fully assess. Will re-evaluate at follow-up as appropriate. Nutrition Prescription (Diet Order): cardiac Estimated Nutritional Needs: 0788-3002 calories/day (22-25 kcal/kg IBW) 121-162 g protein/day (1.5-2 g pro/kg IBW) Diet Adequacy: it is recorded pt consumed 100% of breakfast this morning, previous PO intake is unknown Tolerance: Tolerating PO Diet Education Needs Assessment: RD is available for diet education as needed Nutrition Care Level: low Nutrition Diagnosis: Increased nutrient needs related to increased demand for protein and kcal as evidenced by stage 2 sacral pressure ulcer. Goal: Patient will meet 75-100% of estimated needs by follow up Progress: N/A Interventions: -fat/cholesterol/sodium - modified diet, Commercial beverage Monitoring/Evaluation: -Total energy intake, Total protein intake Modified diet, Liquid supplement, Weight change Signed: Korin Landeros RD, LD
[2020-02-04] MEDS: ENOXAPARIN SOD INJ 40 MG/0.4 ML SYR SC SCH (17:00)
--- NOTE | 2020-02-04 19:37 | NUR ---
BSSR RECEIVED FROM DAYSHIFT, PATIENT SEEN ATTEMPTING TO GET OOB UNASSISTED, POOLE BEING PULLED FROM OTHER SIDE OF BED, BED ALARM ACTIVATED, PT EDUCATED ON FALL RISK, STATES " I FORGOT", PATIENT TAKEN SAFETYLY TO BATHROOM WITH STANBY ASSISTANCE/WALKER, 1100CC OF DARK YELLOW URINE EMPTIED, PATIENT STATES " I HAD BOWEL MOVEMENT" FLUSHED TOILET BEFORE CAN BE ASSESSED, PLACED BACK IN BED SAFETY MAINTAINED, CALL LIGHT WITHIN REACH BED ALARM REACTIVATED
--- NOTE | 2020-02-04 21:50 | History and Physical ---
PRIMARY CARE PHYSICIAN: INFECTIOUS DISEASE: Altagracia Coyne MD CHIEF COMPLAINT: Generalized weakness. HISTORY OF PRESENT ILLNESS: This is a 79-year-old male with past medical history of hypertension, CKD, hypothyroidism, and BPH presented to the ER with complaints of weakness. According to EMS, the patient was very weak, founding faces. He is not able to give me much information. He denies any chest pain, fever, chills, nausea, or vomiting. No abdominal pain. In the ER, his creatinine was 2.61. Coronavirus PCR was dissected. CT brain with no acute intracranial abnormality. Chest x-ray was unremarkable. He is admitted for further evaluation and placement. PAST MEDICAL HISTORY: 1. Hypertension. 2. Hypothyroidism. 3. CKD. 4. Benign prostatic hyperplasia. SURGICAL HISTORY: Unknown. FAMILY MEDICAL HISTORY: Unknown SOCIAL HISTORY: He denies tobacco, alcohol, or illicit drug use. ALLERGIES: NO KNOWN DRUG ALLERGIES. REVIEW OF SYSTEMS: Unable to obtain due to altered mental status. PHYSICAL EXAMINATION: VITAL SIGNS: Temperature 98.1, pulse is 81, respirations 18, blood pressure 128/75, pulse ox is 95% on room air. GENERAL: No acute distress. HEENT: Normocephalic, atraumatic. NECK: Supple. LUNGS: Decreased breath sounds. CARDIOVASCULAR: Regular rate and rhythm. GI: Soft and nontender. NEUROLOGIC: Alert, awake, and oriented x1 to x2. MUSCULOSKELETAL: Moves all extremities. No edema. SKIN: Dry. LABORATORY DATA: WBC 5.85, hemoglobin 11.9, hematocrit 36.6, platelets 157. Sodium 141, potassium 3.7, CO2 of 21. BUN is 27. Creatinine is 1.83 . Lactic acid is 0.7. Troponin x3 is -0.008. BNP is 68.6. Urine negative. Coronavirus PCR is positive. Chest x-ray is unremarkable. Brain CT is unremarkable for acute process. IMPRESSION AND PLAN: 1. General weakness, likely due to coronavirus disease 2019 pneumonia. He was started on azithromycin and Rocephin. ID and Pulmonary have been consulted. Chest x-ray negative. 2. Acute kidney injury on chronic kidney disease, improving with IV fluid hydration. Creatinine is now 1.83. We will continue to hydrate and repeat labs in a.m. 3. Trigeminy, on EKG. Cardiology has been consulted. Echo is pending. 4. Hypertension. Continue metoprolol. 5. Hypothyroidism. Continue on Synthroid 112 mcg daily. 6. Benign prostatic hyperplasia. Continue on Proscar. 7. High cholesterol. Continue on statin. 8. Recent history of Clostridium difficile. Completed vancomycin per ID. Continue probiotics. Further recommendation per ID. 9. Deep venous thrombosis prophylaxis. Lovenox. PLAN: To continue current treatments, further recommendations per Cardiology. Placement to nursing home facility once cleared by Cardiology. Dictated by RENALDO Kaiser Aliciaching Wilbert More MD MY/MODL /[id number]
--- NOTE | 2020-02-04 22:13 | NUR ---
PER MD DAWN ORDER, PATIENT GIVEN METOPROLOL IV CONVERTED BACK TO SINUS RHYTHM, AMIODARONE DRIP ORDER PENDING, PT PENDING DISCHARGE TO ICU PER MD NIA WHITT
[2020-02-04] MEDS: AMLODIPINE BESYLATE 5 MG TAB PO SCH (22:16)
[2020-02-04] MEDS: FERROUS SULFATE 65 MG PO SCH (22:16)
[2020-02-04] MEDS: FINASTERIDE 5 MG TAB PO SCH (22:16)
[2020-02-04] MEDS: DOCUSATE SODIUM 100 MG CAP PO SCH (22:16)
[2020-02-04] MEDS: DICYCLOMINE HCL 10 MG CAP PO SCH (22:16)
[2020-02-04] MEDS: AZITHROMYCIN 500MG/NS 250 ML 250 ML IV SCH (22:16)
[2020-02-05] VITALS (9 sets, daily range): BP systolic 147–167; BP diastolic 56–76
[2020-02-05] MEDS: SODIUM CHLORIDE 0.9% 1000ML 1,000 ML IV SCH ×3 (02:45→21:30)
[2020-02-05] MEDS: LEVOTHYROXINE SODIUM 112 MCG TAB PO SCH (05:30)
[2020-02-05 05:32] LABS: ANION GAP 12.6 mmol/L (8-16); CALCIUM 8.7 mg/dL (8.4-10.2); CREATININE, SERUM 1.78 mg/dL (0.72-1.25); POTASSIUM 3.6 mmol/L (3.5-5.1)
--- NOTE | 2020-02-05 07:28 | NUR ---
MARGARET MCMILLAN UPDATED ON PATIENT CARE
[2020-02-05] MEDS: DICYCLOMINE HCL 20 MG TAB PO SCH (09:09)
[2020-02-05] MEDS: ALLOPURINOL 100 MG TAB PO SCH (09:10)
[2020-02-05] MEDS: POTASSIUM CHLORIDE 20 MEQ TAB CR PO SCH (09:10)
[2020-02-05] MEDS: SIMETHICONE 80 MG CHEW PO SCH (09:10)
[2020-02-05] MEDS: LACTOBACILLUS ACIDOPHILUS CAPSULE PO SCH ×2 (09:10→17:37)
[2020-02-05] MEDS: METOPROLOL SUCCINATE 50 MG TAB XL PO SCH (09:10)
[2020-02-05] MEDS: BALSAM PERU/CASTOR OIL 60 GM OINT...G. TP SCH (09:11)
--- NOTE | 2020-02-05 12:15 | NUR ---
SPOKE WITH PT VIA PHONE, HE IS ALERT AND ORIENTED AND IN AGREEMENT TO GO TO SNF, [facility]
--- NOTE | 2020-02-05 12:59 | Progress Note ---
DATE: SUBJECTIVE: The patient is seen and evaluated. Available labs and notes reviewed. This case was discussed with Dr. Coyne in details. Please refer to chart for more information. REVIEW OF SYSTEMS: He is doing "great." No nausea, vomiting, fever, chills, chest pain, or shortness of breath. Appetite is fair. No diarrhea. No loss of taste or smell. MEDICATIONS: 1. Zithromax. 2. Lovenox. LABORATORY STUDIES: White count of 5.85, hemoglobin 11.9, and platelet 157. Sodium 141, potassium 3.6, and creatinine 1.78. Serology: Coronavirus PCR detected on 02/03/2020. MICROBIOLOGY: Blood culture, negative 48 hours. RADIOLOGY STUDIES: No new radiology studies available. PHYSICAL EXAMINATION: VITAL SIGNS: Temperature 98.7, pulse 64, respirations 18, and blood pressure 159/64. The patient's on room air saturation between 95-97%. No obvious acute finding. GENERAL: Alert and oriented, no acute distress. CV: S1-S2. CHEST: Equal expansion. Clear to auscultation with decreased breath sounds. No acute distress. ABDOMEN: Soft. Nontender. No distention. HEENT: Moist. No pallor. No JVD. EXTREMITIES: Moves all. ASSESSMENT AND PLAN: 1. Positive coronavirus disease-19, clinically doing really well. He stays on room air, saturation is in high 90s clinically. No acute distress. 2. Recurrent Clostridium difficile. The patient denied any diarrhea. 3. Renal insufficiency, stage 4. 4. Metabolic acidosis. 5. Hypertension. Discussed with Case Management. Discharge planning is in progress. Please refer to chart for more information. Dictated by Bienvenido Enriquez PA-C (Al) Altagracia Coyne MD /MODL /[id number]
--- NOTE | 2020-02-05 13:47 | NUR ---
Urinary Catheter removed per ordered. Catheter intact. Due to void 19:37. Respiration even and unlabored without SOB. Call light in reach.
--- NOTE | 2020-02-05 15:04 | Progress Note ---
DATE: 02/05/2020 CONSULTANTS: 1. Altagracia Coyne M.D., Infectious Disease. 2. Liam Hurtado M.D., Radio Repairer. CHIEF COMPLAINT: Generalized weakness and chronic diarrhea. SUBJECTIVE: The patient is much more awake and alert today, he is able to get up and ambulate with walker. We will discontinue [place]ke catheter. He denies any chest pain, shortness of breath, fever, or chills. He is agreeable to go to a halfway facility for long rehabilitation before sending home. OBJECTIVE: VITAL SIGNS: Temperature 98.7, pulse is 64, respirations 18, blood pressure 159/64, and pulse ox is 95% on room air. GENERAL: In no acute distress. HEENT: Normocephalic, atraumatic. NECK: Supple . LABORATORY DATA: Sodium 141, potassium 3.6, BUN is 24, creatinine 1.76, and estimated GFR 37. Troponin negative. Blood culture negative so far. IMPRESSION: 1. Generalized weakness, likely due to dehydration due to COVID-19. He was started on azithromycin. ID and Pulmonary have been consulted. Chest x-ray unremarkable. He is on room air. 2. Acute kidney injury on chronic kidney disease, improving with IV fluid hydration. Creatinine is 1.78 today. Continue to hydrate and encourage p.o. intake. 3. History of trigeminy on EKG. Cardiology has been consulted. Echo is pending. Per his son, he is seeing his speeder machine operator for further workup. 4. Hypertension. Continue metoprolol. 5. Hypothyroidism. Continue thyroid. 6. BPH. Continue Proscar. 7. High cholesterol. Continue statin. 8. History of Clostridium difficile. Per son, has been treated and trying to clear diarrhea for over 6 months. Following up with Dr. Coyne. 9. Deep vein thrombosis prophylaxis, on Lovenox. PLAN: Continue current treatment. Physical therapy has seen the patient and recommend halfway facility. The patient is agreeable to go to halfway facility . Dictated by RENALDO Kaiser Radha More MD MY/MODL /[id number]
--- NOTE | 2020-02-05 15:40 | NUR ---
Patient voided small amount of urine to the toilet PT evaluation.
--- NOTE | 2020-02-05 15:58 | NUR ---
CONTACTED FACILITY STILL PENDING AUTH AT [facility]
--- NOTE | 2020-02-05 16:10 | Progress Note ---
DATE: SUBJECTIVE: The patient is now agreeing to detention. He is not having any diarrhea. He is not complaining of cough or dyspnea. PHYSICAL EXAMINATION: VITAL SIGNS: The patient is afebrile. The blood pressure is 159/64, saturation is 95%, and the pulse is 64. HEENT: Shows no facial swelling or erythema. CARDIAC: Reveals regular rate and rhythm with normal S1, S2. LUNGS: Auscultation of lungs shows clear breath sounds bilaterally. There is no wheezing. ABDOMEN: Soft, nontender. There is no rebound or guarding. EXTREMITIES: Shows no leg edema or calf tenderness. LABORATORY DATA: The BUN to creatinine ratio is 28 to 1.78. Other electrolytes are stable. White blood cell count is 5.85 and hemoglobin is 11.9. The platelet count is 157. IMPRESSION: 1. COVID-19 and viral pneumonia. 2. Recurrent Clostridium difficile colitis. 3. Acute kidney injury. 4. Hypertension. 5. Benign prostatic hypertrophy. PLAN: 1. Arrange for placements in a detention facility. 2. Continue to withhold antibiotics for now because of recurrent C. difficile colitis. 3. Monitor kidney function. 4. Monitor high blood pressure. 5. Possible transfer to detention. Liam Hurtado MD Deepika/NATHANIEL /[id number]
[2020-02-05] MEDS: ENOXAPARIN SOD INJ 40 MG/0.4 ML SYR SC SCH ×2 (17:00→17:37)
--- NOTE | 2020-02-05 18:05 | NUR ---
PIV to right AC is leaking. Removed PIV. catheter intact, no bleeding noted.
[2020-02-05] MEDS ORDERED: CLONIDINE HCL 0.1 MG TAB PO PRN (19:00)
[2020-02-05] MEDS: AMLODIPINE BESYLATE 5 MG TAB PO SCH (20:56)
[2020-02-05] MEDS: DICYCLOMINE HCL 10 MG CAP PO SCH (20:57)
[2020-02-05] MEDS: AZITHROMYCIN 500MG/NS 250 ML 250 ML IV SCH (20:57)
[2020-02-05] MEDS: FINASTERIDE 5 MG TAB PO SCH (20:57)
[2020-02-05] MEDS: DOCUSATE SODIUM 100 MG CAP PO SCH (20:57)
[2020-02-05] MEDS: FERROUS SULFATE 65 MG PO SCH (20:57)
[2020-02-06] VITALS (9 sets, daily range): BP systolic 115–170; BP diastolic 55–86
--- NOTE | 2020-02-06 02:47 | Consultation ---
DATE OF CONSULTATION: 02/03/2020 Cardiology Consult Note REASON FOR CONSULTATION: Generalized weakness, trigeminy. CHIEF COMPLAINT: Generalized weakness. HISTORY OF PRESENT ILLNESS: The patient is a 79-year-old man, no prior cardiovascular history, and says he was recently exposed to coronavirus, and has been feeling weak and tired recently. He was noted to be in trigeminy on admission. We were consulted as he recently had a full cardiovascular workup with his outpatient collection development librarian including stress test and echocardiogram, which he believes is normal. Denies any chest pain or shortness of breath at this time. PAST MEDICAL HISTORY: Hypertension and hyperlipidemia. PAST SURGICAL HISTORY: Noncontributory. SOCIAL HISTORY: Does not smoke, drink, or abuse drugs. FAMILY HISTORY: Noncontributory. REVIEW OF SYSTEMS: As per HPI, otherwise negative. OUTPATIENT MEDICATIONS: Reviewed. ALLERGIES: REVIEWED. NO KNOWN DRUG ALLERGIES. OBJECTIVE: VITAL SIGNS: Temperature afebrile, pulse 68, respiratory rate 18, blood pressure 152/93, saturating 98% on room air. GENERAL: Elderly man, in no acute distress. CARDIOVASCULAR: Regular rate and rhythm. No murmurs, rubs, or gallops. LUNGS: Clear to auscultation bilaterally. ABDOMEN: Soft, nontender, nondistended. NEURO AND PSYCH: Alert and oriented to person, place, and time. Normal affect. INPATIENT MEDICATIONS: Reviewed. LABORATORY DATA: Reviewed. Troponins negative x2. Creatinine 2.6. TELEMETRY DATA: Reviewed, shows frequent PVCs including bigeminy and trigeminy. ASSESSMENT: 1. Generalized weakness. 2. Trigeminy. PLAN: COVID-19 test is pending. We will start low-dose beta-blockers to manage PVCs. Echocardiogram has been ordered and results are pending. Thank you for this consult. We will continue to follow. MD MARICRUZ Cantu/NATHANIEL /[id number]
[2020-02-06] MEDS: LEVOTHYROXINE SODIUM 112 MCG TAB PO SCH (06:00)
[2020-02-06 06:05] LABS: CALCIUM 8.5 mg/dL (8.4-10.2); CREATININE, SERUM 1.58 mg/dL (0.72-1.25)
--- NOTE | 2020-02-06 07:00 | NUR ---
BSSR GIVEN VERBALLY TO HIPOLITO KELSEY, PT STABLE, AOX3, FALL RISK, REMAIN ON DROPLET PRECAUTION, UPDATE ABOUT PLAN FOR DISCHARGE, HIPOLITO KELSEY WILL GIVE PATIENT SIX AM THYROID MEDICATION, CALL LIGHT WITHIN REACH
--- NOTE | 2020-02-06 08:09 | NUR ---
SPOKE WITH REP, STILL PENDING AUTH FOR SNF
[2020-02-06] MEDS: DICYCLOMINE HCL 20 MG TAB PO SCH (09:13)
[2020-02-06] MEDS: LACTOBACILLUS ACIDOPHILUS CAPSULE PO SCH (09:13)
[2020-02-06] MEDS: ALLOPURINOL 100 MG TAB PO SCH (09:13)
[2020-02-06] MEDS: SIMETHICONE 80 MG CHEW PO SCH (09:13)
[2020-02-06] MEDS: AMLODIPINE BESYLATE 5 MG TAB PO SCH (09:13)
[2020-02-06] MEDS: BALSAM PERU/CASTOR OIL 60 GM OINT...G. TP SCH (09:13)
[2020-02-06] MEDS: POTASSIUM CHLORIDE 20 MEQ TAB CR PO SCH (09:18)
[2020-02-06] MEDS: METOPROLOL SUCCINATE 50 MG TAB XL PO SCH (09:19)
[2020-02-06] MEDS: SODIUM CHLORIDE 0.9% 1000ML 1,000 ML IV SCH (11:30)
--- NOTE | 2020-02-06 13:14 | Progress Note ---
DATE: 02/06/2020 CONSULTANTS: 1. Dr. Coyne with Infectious Disease. 2. Dr. Hurtado with icebox worker. 3. Dr. Larry with Cardiology. CHIEF COMPLAINT: Generalized weakness and chronic diarrhea. SUBJECTIVE: The patient is lying in bed with no acute distress, is alert, awake, and oriented x2-3. He reports he is eating well and denies any diarrhea. He denies any chest pain, shortness of breath, fever, or chills. Awaiting on insurance authorization for correction placement. OBJECTIVE: VITAL SIGNS: Temperature 98.9, pulse is 69, respirations 18, blood pressure 168/69, and pulse ox is 99% on room air. GENERAL: In no acute distress. HEENT: Normocephalic, atraumatic. NECK: Supple. CARDIOVASCULAR: Regular rate and rhythm. LUNGS: Clear to auscultation. GI: Soft and nontender. MUSCULOSKELETAL: Moves all extremities. NEUROLOGIC: Alert, awake, and oriented x2-3. SKIN: Dry. LABORATORY DATA: Sodium 142, potassium 4.0, CO2 of 22, creatinine 1.58, BUN is 19, estimated GFR is 43. IMPRESSION: 1. Generalized weakness due to COVID-19. He was started on azithromycin per ID and Pulmonology. Chest x-ray is unremarkable, currently on room air. 2. Acute kidney injury on questionable chronic kidney disease, improving with IV fluid hydration. Creatinine 1.58. We will continue with hydration. 3. History of trigeminy, on EKG. Cardiology has been consulted. Echo reading pending. Per son, he is following up with his director of advertising sales for further workup. 4. Hypertension. Continue on metoprolol and Norvasc. We will hold clonidine p.r.n. 5. Hypothyroidism. Continue Synthroid. 6. BPH, on Proscar. 7. High cholesterol. Continue on statin. 8. History of chronic Clostridium difficile. Per son, he has been seeing Dr. Coyne for over six months. We will follow up with Dr. Coyne. 9. Deep vein thrombosis prophylaxis, on Lovenox. PLAN: Continue current treatment, pending insurance approval for a correction facility placement. Dictated by RENLADO Kaiser MD EZRA Herrera/ALEXL /[id number]
--- NOTE | 2020-02-06 13:55 | NUR ---
[facility]-WAY FACILITY DISCHARGE INFORMATION PATIENT HAS BEEN ACCEPTED TO: NAME: JENELLE MENA ADDRESS:[address] [place] [address] ACCEPTING MD:RAMESH ROOM: 300 NURSE CALL REPORT TO: [phone] IMM SIGNED AND OBTAINED (if applicable): THE FOLLOWING DOCUMENTS MUST ACCOMPANY PATIENT FOR TRANSFER: COPIED CHART: PACKET
--- NOTE | 2020-02-06 15:00 | NUR ---
patient accepted to [facility]. report called to mayelin MCMILLAN. pt and son jeannette made aware of transfer today. ems arranged and waiting for arrival.
--- NOTE | 2020-02-06 16:00 | NUR ---
patient discharged. IV access removed. patient transferred off unit via [facility] ems with all belongings.
--- NOTE | 2020-02-06 18:10 | Progress Note ---
DATE: SUBJECTIVE: The patient is standing a little with physical therapy. He has opted for assisted placement. PHYSICAL EXAMINATION: VITAL SIGNS: Blood pressure is 124/81, saturation is 97%. The pulse is 72. HEENT: Shows no facial swelling or erythema. CARDIAC: Reveals regular rate and rhythm with normal S1, S2. LUNGS: Auscultation of lungs reveals clear breath sounds bilaterally. There is no wheezing. ABDOMEN: Soft, nontender. There is no rebound or guarding. IMPRESSION: 1. Viral pneumonia and COVID-19 infection. 2. Prior history of Clostridium difficile colitis. 3. Profound weakness. 4. Acute kidney injury. 5. Hypertension. 6. Hypothyroidism. PLAN: 1. Continue current regimen. 2. Physical therapy. 3. Transfer to assisted. Liam Hurtado MD Deepika/ALEXL /[id number]
--- NOTE | 2020-02-06 21:05 | Discharge Summary ---
PCP: Unknown. FINAL DISCHARGE DIAGNOSES: 1. COVID-19 positive. 2. Acute kidney injury. 3. History of trigeminy. 4. Hypertension. 5. Hypothyroidism. 6. Benign prostatic hyperplasia. 7. High cholesterol. 8. History of chronic Clostridium difficile. 9. Debility. CONSULTANTS: 1. Dr. Coyne with Infectious Disease. 2. Dr. Hurtado with concrete buildings assembler. 3. Dr. Larry with quoter. PROCEDURES: None. HISTORY: Per HPI. HOSPITAL COURSE: This is a 79-year-old male, who presented to the ER with increased debility and chronic diarrhea due to C. difficile, was positive for COVID-19. Dr. Coyne was consulted and was started on azithromycin and concrete buildings assembler also consulted for acute respiratory distress due to COVID-19. He continued to improve. He was noted to have trigeminy on EKG. Cardiology was consulted. Echocardiogram was done and quoter evaluated the patient, but according to son, he reports has is being followed with quoter and planning further workup outpatient. Meanwhile, he was started on metoprolol for PVCs. He was evaluated by physical therapy requiring maximum assist and the he was advised to have further rehabilitation before returning home. The patient and family are agreeable to placement. We will discharge to alf facility for further rehabilitation. PHYSICAL EXAMINATION: VITAL SIGNS: Temperature 98.6, pulse is 72, respirations 18, blood pressure 124/81, and pulse ox is 97% on room air. GENERAL: No acute distress. HEENT: Normocephalic and atraumatic. NECK: Supple. CARDIOVASCULAR: Regular rate and rhythm. LUNGS: Clear to auscultation. GI: Soft and nontender. MUSCULOSKELETAL: Moves all extremities. NEUROLOGIC: Alert, awake, and oriented x2 to 3. SKIN: Dry. CONDITION AT DISCHARGE: Improved and stable. DISCHARGE MEDICATIONS: Please see medication reconciliation list. FOLLOWUP: Follow up with PCP, Dr. Coyne in 2 weeks for COVID repeat test and Cardiology in 1 to 2 weeks. TIME SPENT: Total discharge time is 32 minutes. Dictated by RENALDO Kaiser Aliciaching Wilbert More MD MY/MODL /[id number]
--- NOTE | 2020-02-06 23:31 | Progress Note ---
DATE: 02/06/2020 Cardiology Progress Note SUBJECTIVE: The patient was discussed with nursing staff. No chest pain or shortness of breath are reported. OBJECTIVE: VITAL SIGNS: Temperature 99.4 degrees, pulse 66, respiratory rate 18, blood pressure 144/61, oxygen saturation 98% on room air. The patient was not examined due to isolation for COVID-19. CARDIAC MEDICATIONS: 1. Metoprolol succinate 50 mg p.o. daily. 2. Amlodipine 5 mg p.o. b.i.d. 3. Enoxaparin 40 mg subcu daily. 4. Levothyroxine 112 mcg p.o. daily. LABORATORY DATA: Sodium 142, potassium 4, chloride 112, CO2 of 22, BUN 19, and creatinine 1.58. TELEMETRY: Personally reviewed and interpreted, revealing normal sinus rhythm with PVCs. IMPRESSION: 1. Frequent PVCs including bigeminy and trigeminy, coronavirus disease 2019 positive. 2. Acute kidney injury, improved. 3. Hypertension. 4. Hyperlipidemia. RECOMMENDATIONS: Continue current cardiac medications. Keep potassium above 4 and magnesium above 2. Monitor the patient on telemetry while admitted. Echocardiogram was reviewed with normal LV systolic function, LVEF 55% to 60%. There were no significant valvular abnormalities. No further cardiac evaluation is indicated at this time as the patient reported recent stress test with his outpatient test driver. Please have the patient follow up with his outpatient test driver in 2 weeks. Thank you for this consult. We will continue to follow. Myrna Castillo MD ABS/MODL /[id number]
== END 2020-02-06 15:52 | DRG 177 ==
LOC: ER 08:34 → ERHOLD 11:08 → MED/SURG3 12:55 → IMCU 19:55
PROVIDERS: ADMIT Internal Medicine; ATTEND Internal Medicine
PROC: 8E0ZXY6 Isolation (ICD-10-PCS; principal; 2020-02-03)
DX: U07.1 COVID-19 (principal); J12.89 Other viral pneumonia; N17.9 Acute kidney failure, unspecified; N18.4 Chronic kidney disease, stage 4 (severe); E87.2 Acidosis; A04.71 Enterocolitis due to Clostridium difficile, recurrent; R06.03 Acute respiratory distress; R00.8 Other abnormalities of heart beat; I12.9 Hypertensive chronic kidney disease with stage 1 through stage 4 chronic kidney disease, or unspecified chronic kidney disease; N18.9 Chronic kidney disease, unspecified; E03.9 Hypothyroidism, unspecified; N40.0 Benign prostatic hyperplasia without lower urinary tract symptoms; Z90.49 Acquired absence of other specified parts of digestive tract; E78.00 Pure hypercholesterolemia, unspecified; R53.81 Other malaise; L89.152 Pressure ulcer of sacral region, stage 2
CPT/HCPCS: 36415; 51700; 70450; 71045; 80048; 80053; 81001; 82550; 82553; 82948; 83605; 83880; 84484; 85025; 87040; 93005; 93306; 97139; 99251; 99285; J0456; J0696; J1650; J2543; J7030; J7050; U0002